=== PATIENT | female | born 1985 | race Caucasian/White ===

== ENCOUNTER 2023-11-17 06:55 | Emergency (ER) | payer OTHER ==
[~2023-11-17] VITALS: Ht 160 cm; Wt 70.5 kg
[2023-11-17 07:01] VITALS: TEMP 97.8
[2023-11-17 07:24] LABS: BASO % 0.4 % (0.0-2.0); EOS # 0.2 K/mm3 (0.0-0.7); EOS % 3.2 % (0.0-4.0); GRAN # 4.1 K/mm3 (1.4-6.5); GRAN % 55.3 % (42.2-75.2); HEMATOCRIT 40.2 % (37.0-47.0); HEMOGLOBIN 13.3 g/dl (12.5-16.0); LYMPH # 2.6 K/mm3 (1.2-3.4); LYMPH % 34.5 % (20.0-51.0); MEAN CELL VOLUME 83 fl (80.0-100.0); MEAN CORPUSCULAR HEMOGLOBIN 28 pg (27-31); MEAN CORPUSCULAR HGB CONC 33 g/dl (33.0-37.0); MEAN PLATELET VOLUME 9.6 fl (7.4-10.4); MONO # 0.5 K/mm3 (0.1-0.6); MONO % 6.3 % (1.7-9.3); PLATELET COUNT 379 K/mm3 (130-400); RED BLOOD COUNT 4.82 M/mm3 (4.10-5.30); REDCELL DISTRIBUTION WIDTH-CV 13.2 % (11.5-14.5)
[2023-11-17 07:41] LABS: ALANINE AMINOTRANSFERASE 14 U/L (0-55); ALKALINE PHOSPHATASE 71 U/L (40-150); ANION GAP 9 mmol/L (7-16); AST,SGOT 19 U/L (5-34); BLOOD UREA NITROGEN 16 mg/dL (7-19); CALCIUM 9.7 mg/dL (8.4-10.2); CARBON DIOXIDE 23 mmol/L (22-29); CHLORIDE 107 mmol/L (98-107); CREATININE, serum 0.78 mg/dL (0.57-1.11); GLUCOSE 94 mg/dL (70-99); MAGNESIUM 1.9 mg/dL (1.6-2.6); POTASSIUM 3.4 mmol/L (3.5-4.5); SODIUM 139 mmol/L (136-145); TOTAL PROTEIN 7.3 gm/dL (6.2-8.1)
[2023-11-17 07:49] LABS: BILIRUBIN,TOTAL 0.5 mg/dL (0.2-1.2)
[2023-11-17 07:53] LABS: TROPONIN-I < 0.010 ng/mL (0.00-0.033)
[2023-11-17 08:10] LABS: MONOSCREEN NEGATIVE
[2023-11-17] MEDS ORDERED: DOXYCYCLINE 10100 MG PO (09:14)
[2023-11-17 09:53] VITALS: BP 121/84; PULSE 87
== END 2023-11-17 09:54 | disposition home or self-care (01) ==
LOC: COL.ER 06:55
PROVIDERS: Family Medicine
DX: L73.8 Other specified follicular disorders (principal); R07.89 Other chest pain; R68.84 Jaw pain